=== PATIENT | female | born 2000 | race Caucasian/White ===

== ENCOUNTER 2019-11-04 18:05 | Inpatient (IN) | payer BC, OTHER ==
[2019-11-04] MEDS ORDERED: PENICILLIN G POTASSIUM 5,000,000 UNIT in DEXTROSE 5%-WATER 100 ML IV ONE (18:15)
[2019-11-04] MEDS ORDERED: RINGERS SOLUTION,LACTATED 1,000 ML IV PRN ×2 (18:15→18:18)
[2019-11-04] MEDS ORDERED: RINGERS SOLUTION,LACTATED 300 ML IV ONE (18:18)
[2019-11-04] MEDS ORDERED: DINOPROSTONE 10 MG VAGINAL INSERT.SR PV ONE (18:18)
[2019-11-04] MEDS ORDERED: ACETAMINOPHEN 325 MG TABLET PO PRN (18:18)
[2019-11-04] MEDS ORDERED: ZOLPIDEM TARTRATE 5 MG TABLET PO PRN ×2 (18:18→22:59)
[2019-11-04] MEDS ORDERED: MAG HYDROX/AL HYDROX/SIMETH SUSP 30 ML UDCUP PO PRN (18:18)
[2019-11-04 18:38] LABS: APPEARANCE,URINE SLIGHTLY-CLOUDY; BILIRUBIN,URINE NEGATIVE (NEGATIVE); COLOR,URINE YELLOW; GLUCOSE, URINE NEGATIVE (NEGATIVE); KETONES,URINE NEGATIVE (NEGATIVE); LEUKOCYTE ESTERASE,URINE MODERATE (NEGATIVE); NITRITE,URINE NEGATIVE (NEGATIVE); PROTEIN,URINE NEGATIVE (NEGATIVE); URINE SPECIFIC GRAVITY 1.012; UROBILINOGEN,URINE NEGATIVE mg/dL (<2.0)
[2019-11-04 18:49] LABS: ABSOLUTE EOSINOPHILS # (AUTO) 0.1 10^3/uL (0.0-0.6); ABSOLUTE LYMPHOCYTES (AUTO) 1.7 10^3/uL (0.5-4.7); ABSOLUTE MONOCYTES (AUTO) 0.8 10^3/uL (0.1-1.4); ABSOLUTE NEUT (AUTO) 9.3 10^3/uL (1.7-8.2); BASOPHILS % (AUTO) 0.1 % (0-2); EOSINOPHILS % (AUTO) 0.4 % (0-6); HEMATOCRIT 36.4 % (36.0-47.0); HEMOGLOBIN 11.9 g/dL (12.0-15.5); LYMPHOCYTES % (AUTO) 13.9 % (13-45); MEAN CORPUSCULAR HEMOGLOBIN 25.6 pg (27.0-33.4); MEAN CORPUSCULAR HGB CONC 32.8 g/dL (32.0-36.0); MEAN CORPUSCULAR VOLUME 78 fl (80-97); MONOCYTES % (AUTO) 6.9 % (3-13); PLATELET COUNT 168 10^3/uL (150-450); RED BLOOD COUNT 4.66 10^6/uL (3.72-5.28); SEGMENTED NEUTROPHILS % (AUTO) 78.7 % (42-78); TOTAL CELLS COUNTED % (AUTO) 100 %; WHITE BLOOD COUNT 11.9 10^3/uL (4.0-10.5)
[2019-11-04 18:53] LABS: URINE AMPHETAMINES SCREEN NEGATIVE; URINE BARBITURATES SCREEN NEGATIVE; URINE BENZODIAZEPINES SCREEN NEGATIVE; URINE COCAINE SCREEN NEGATIVE; URINE MARIJUANA (THC) SCREEN NEGATIVE; URINE METHADONE SCREEN NEGATIVE; URINE PHENCYCLIDINE SCREEN NEGATIVE
[2019-11-04] MEDS ORDERED: MISOPROSTOL 0.2 MG TABLET ONE (19:29)
[2019-11-04] MEDS ORDERED: OXYTOCIN 10 UNIT/ML VIAL ONE (19:29)
[2019-11-04] MEDS ORDERED: DINOPROSTONE 10 MG VAGINAL INSERT.SR ONE (19:29)
[2019-11-04] MEDS ORDERED: OXYTOCIN/0.9 % SODIUM CHLORIDE 30 UNIT/500 ML RTUINJ ONE (19:29)
[2019-11-04] MEDS ORDERED: LIDOCAINE 1% INJ-PF (10 MG/ML) 30 ML SDV ONE (19:29)
[2019-11-04] MEDS ORDERED: ZOLPIDEM TARTRATE 5 MG TABLET ONE (22:59)
[2019-11-05] MEDS ORDERED: PROMETHAZINE HCL INJ 25 MG/1 ML VIAL ONE (00:23)
[2019-11-05] MEDS ORDERED: NALBUPHINE HCL INJ 10 MG/1 ML AMPULE ONE (00:24)
[2019-11-05] MEDS ORDERED: PROMETHAZINE HCL INJ 25 MG/1 ML VIAL IV ONE (00:30)
[2019-11-05] MEDS ORDERED: NALBUPHINE HCL INJ 10 MG/1 ML AMPULE INJ ONE (00:30)
[2019-11-05] MEDS ORDERED: EPHEDRINE SULFATE INJ 50 MG/1 ML AMPULE ONE (04:32)
[2019-11-05] MEDS ORDERED: FENTANYL/BUPIVACAINE/NS/PF 300 MCG/150 ML RTUINJ EPI ONE (04:34)
[2019-11-05] MEDS ORDERED: BUPIVACAINE HCL 0.25 % INJ/PF (2.5 MG/1 ML) 30 ML VIAL ONE (04:34)
[2019-11-05] MEDS ORDERED: PENICILLIN G-K 5 MILLION UNIT VIAL ONE (05:20)
--- NOTE | 2019-11-05 06:04 | Admission Physical ---
Datetime Report Generated by CPN: 11/05/2019 06:03 CURRENT ADMISSION Chief Complaint: Uterine Contractions Indication for Induction: Post Dates Admit Impression : Postterm, Intrauterine Admit Plan: Initiate Labor Protocol ALLERGIES Medication Allergies: No Known Allergies (11/04/2019) OBSTETRICAL HISTORY EDC: 10/29/2019 00:00 : 3 Para: 0 Term: 0 : 0 SAB: 0 IAB: 0 Ectopic: 0 Livin Cesareans: 0 VBACs: 0 Multiple Births: 0 Gestational Diabetes: No Rh Sensitization: No Incompetent Cervix: No BUNNY: No Infertility: No ART Treatment: No Uterine Anomaly: No IUGR: No Hx Previous C/S: No Macrosomia: No Hx Loss/Stillborn: No PIH: No Hx : No Placenta Previa/Abruption: No Depression/PP Depression: No PTL/PROM: No Post Hemorrhage: No Current Procedures: Ultrasound; NST Obstetrical History Comments: G1- SAB in 2013 G2- SAB in 2017 G3- current SEE RECORDS Alcohol: No Marijuana : No Cocaine: No Other Illicit Drugs: No Cigarettes: Never Smoker. [id number] MEDICAL HISTORY Diabetes: No Blood Transfusion: No Pulmonary Disease (Asthma, TB): Yes Breast Disease: Yes Hypertension: No Public Relations Surgery: No Heart Disease: No Hosp/Surgery: Yes Autoimmune Disorder: No Anesthetic Complications: No Kidney Disease: No Abnormal Pap Smear: No Neuro/Epilepsy: No Psychiatric Disorders: Yes Other Medical Diseases: No Hepatitis/Liver Disease: No Significant Family History: No Varicosities/Phlebitis: No Trauma/Violence : No Thyroid Dysfunction: No Medical History Comments: childhood ashtma, breast reduction- 2018, wisdom teeth, bipolar disorder INFECTIOUS HISTORY Gonorrhea: No Genital Herpes: No Chlamydia: No Tuberculosis: No Syphilis: No Hepatitis: No HIV/AIDS Exposure: No Rash or Viral Illness: No HPV: No PHYSICAL EXAM General: Normal HEENT: Normal Neurologic: Normal Thyroid: Normal Heart: Normal Lungs: Normal Breast: Deferred Back: Normal Abdomen: Normal Genitourinary Exam: Normal Extremities: Normal DTRs: Normal Pelvic Type: Adequate FETUS A EGA: 41.0 PLANS FOR LABOR AND DELIVERY Labor and Delivery: None Feeding Preference: Breast Benefit of Breast Feed Discussed: Yes Circumcision: Yes INFORMED CONSENT Signature: with User ID: [email or web address]
[2019-11-05] MEDS ORDERED: DIPHENHYDRAMINE HCL 25 MG CAPSULE PO PRN (06:39)
[2019-11-05] MEDS ORDERED: MEASLES,MUMPS&RUBELLA VACC/PF 0.5 ML VIAL SUBCUT PRN (06:39)
[2019-11-05] MEDS ORDERED: PROMETHAZINE HCL 25 MG TABLET PO PRN (06:39)
[2019-11-05] MEDS ORDERED: NA PHOS,M-B/NA PHOS,DI-BA (ADULT) 133 ML ENEMA PR PRN (06:39)
[2019-11-05] MEDS ORDERED: BENZOCAINE/MENTHOL AEROSOL SPRAY 56 ML TOP PRN (06:39)
[2019-11-05] MEDS ORDERED: DIPH/PERTUSS(ACELL)/TETANUS VAC/PF 0.5 ML SYR (>=10YO) IM PRN (06:39)
[2019-11-05] MEDS ORDERED: PSEUDOEPHEDRINE HCL 30 MG TABLET PO PRN (06:39)
[2019-11-05] MEDS ORDERED: ZOLPIDEM TARTRATE 5 MG TABLET PO PRN (06:39)
[2019-11-05] MEDS ORDERED: GLYCERIN/WITCH HAZEL LEAF 1 EACH MED..WIPE TP PRN (06:39)
[2019-11-05] MEDS ORDERED: PROMETHAZINE HCL INJ 25 MG/1 ML VIAL IV PRN (06:39)
[2019-11-05] MEDS ORDERED: DIBUCAINE 1% OINTMENT 28 GM TP PRN (06:39)
[2019-11-05] MEDS ORDERED: PROMETHAZINE HCL 25 MG SUPP.RECT PR PRN (06:39)
[2019-11-05] MEDS ORDERED: OXYTOCIN/0.9 % SODIUM CHLORIDE 30 UNIT/500 ML RTUINJ IV PRN ×2 (06:39→07:00)
[2019-11-05] MEDS ORDERED: MAGNESIUM HYDROXIDE SUSP 30 ML UDCUP PO PRN (06:39)
[2019-11-05] MEDS ORDERED: ACETAMINOPHEN 650 MG SUPP.RECT PR PRN (06:39)
[2019-11-05] MEDS ORDERED: MISOPROSTOL 0.2 MG TABLET PR ONE (07:40)
--- NOTE | 2019-11-05 09:08 | Delivery Summary ---
Del Sum A-C Datetime Report Generated by CPN: 11/05/2019 09:08 DELIVERY PERSONNEL DELIVERY PERSONNEL: [id number] Delivery Doctor:: Pato Davidson MD Labor and Delivery Nurse:: Jarod Coreas RNmagnaflux operator Nurse:: SULLY Leary Nursery Nurse:: Nicci Oliveros RN Nursery Nurse:: Alysha Mack RN Wash Operator/ENGINEERING CLERK: Patti Green, ST MATERNAL INFORMATION Delivery Anesthesia: Epidural Medications After Delivery: Pitocin Bolus-Please Comment; Pitocin 30 Units in 500ml NS/D5W Delivery QBL: 300 Maternal Complications: None LABOR SUMMARY EDC: 10/29/2019 00:00 No. Babies in Womb: 1 Attempted: No Labor Anesthesia: Epidural LABOR INFORMATION Reason for Induction: Post Dates Onset of Labor: 11/05/2019 04:00 Complete Dilatation: 11/05/2019 06:13 Cervical Ripening Agents: Cervidil Oxytocin: N/A Group B Beta Strep: POSITIVE Antibiotics # of Doses: 1 Antibiotics Time of Last Dose: 525 Name of Antibiotic Given: penicillin Steroids Given: None Reason Steroids Not Administered: Not Applicable MEMBRANES Membranes Rupture Method: Spontaneous Rupture of Membranes: 11/05/2019 06:05 Length of Rupture (hr): 0.43 Amniotic Fluid Color: Light Meconium Amniotic Fluid Amount: Moderate Amniotic Fluid Odor: Normal STAGES OF LABOR Stage 1 hr: 2 Stage 1 min: 13 Stage 2 hr: 0 Stage 2 min: 18 Stage 3 hr: 0 Stage 3 min: 2 Total Time in Labor hr: 2 Total Time in Labor min: 33 VAGINAL DELIVERY Episiotomy: None Laceration #1: None Laceration Extension #1: N/A Laceration Repair: Not Applicable Sponge Count Correct: N/A Sharps Count Correct: N/A CSECTION DELIVERY Primary Indication: N/A Secondary Indication: N/A CSection Incidence: N/A Labor: N/A Elective: N/A CSection Incision: N/A BABY A INFORMATION Delivery Date/Time: 11/05/2019 06:31 Method of Delivery: Vaginal Nurse Controlled Delivery: No Born in Route : No : N/A Forceps: N/A Vacuum Extraction: N/A Shoulder Dystocia : No PRESENTATION/POSITION BABY A Presentation: Cephalic Cephalic Presentation: Vertex Vertex Position: Right Occipital Anterior Breech Presentation: N/A PLACENTA INFORMATION BABY A Placenta Delivery Time : 11/05/2019 06:33 Placenta Method of Delivery: Spontaneous Placenta Status: Delivered SCORES BABY A Heart Rate 1 min: >100 bpm Resp Effort 1 min: Slow, Irregular Reflex Irritability 1 min: Cough or Sneeze or Pulls Away Muscle Tone 1 min: Active Motion Color 1 min: Blue/Pale SCORE 1 MIN: 7 Heart Rate 5 min: >100 bpm Resp Effort 5 min: Good Cry Reflex Irritability 5 min: Cough or Sneeze or Pulls Away Muscle Tone 5 min: Active Motion Color 5 min: Body [place], Extremities Blue SCORE 5 MIN: 9 INFORMATION BABY A Gestational Age at Delivery: 41.0 Gestational Status: Late Term- 41- 41.6 Weeks Outcome : Liveborn Condition : Stable Infant Sex: Male IDENTIFICATION BABY A Verification Date/Time: 11/05/2019 06:47 ID Band Number: [id number] Mother's Name Verified: Yes Infant RN Verifying : Cielo Coreas RN/D [place] RN WEIGHT/LENGTH BABY A Birthweight (gm): 3828 Infant Weight (lb): 8 Weight (oz): 7 Length (in): 21.00 Length (cm): 53.34 CORD INFORMATION BABY A No. Cord Vessels: 3 Nuchal Cord : Around Neck x2, Loose Cord Blood Taken: Yes-For Eval (Mom's Blood Type - or O+) Suction: Mouth; Nose ASSESSMENT BABY A Infant Complications: Meconium Physical Findings at Delivery: Within Normal Limits Physical Findings- Other: See initial nursery assessment Infant Respirations: Appears Normal Skin to Skin: Yes Skin to Skin Time (min): 60 Able Bodied Watchman/ALS Called : No Care By: Rogelio Olvieros RN Transferred To: Remains with Mother BABY B INFORMATION : N/A SIGNATURES Signature: with User ID: [email or web address]
[2019-11-05] MEDS: PENICILLIN G POTASSIUM 2,500,000 UNIT in DEXTROSE 5%-WATER 50 ML IV SCH ×4 (09:12→18:57)
[2019-11-05] MEDS: DOCUSATE SODIUM 100 MG CAPSULE PO SCH ×2 (11:06→17:11)
[2019-11-05] MEDS: FERROUS SULFATE 325 MG TABLET PO SCH ×2 (11:06→17:11)
[2019-11-05] MEDS: FAMOTIDINE 20 MG TABLET PO SCH ×2 (11:06→21:37)
[2019-11-05] MEDS: SENNOSIDES/DOCUSATE 8.6-50 MG 1 EACH TABLET PO SCH (11:06)
[2019-11-05] MEDS: PRENATAL VITAMIN W DHA CAPSULE PO SCH (11:06)
[2019-11-05] MEDS: IBUPROFEN 800 MG TABLET PO SCH ×2 (13:57→21:36)
[2019-11-06] MEDS: IBUPROFEN 800 MG TABLET PO SCH ×3 (05:54→21:25)
[2019-11-06 06:43] LABS: HEMATOCRIT 29.9 % (36.0-47.0); HEMOGLOBIN 10.1 g/dL (12.0-15.5); MEAN CORPUSCULAR HEMOGLOBIN 26.6 pg (27.0-33.4); MEAN CORPUSCULAR HGB CONC 33.9 g/dL (32.0-36.0); MEAN CORPUSCULAR VOLUME 79 fl (80-97); PLATELET COUNT 108 10^3/uL (150-450); RED CELL DISTRIBUTION WIDTH 15.1 % (11.5-14.0); WHITE BLOOD COUNT 9.5 10^3/uL (4.0-10.5)
--- NOTE | 2019-11-06 10:05 | PDOC PROGRESS REPORT ---
Subjective-OB Progress Note for:: 11/06/19 Subjective: reports bleeding slowing, pain controlled with current meds. denies needs Physical Exam (OB) Vital Signs: Temp Pulse Resp BP Pulse Ox 97.5 F 66 14 104/50 L 99 11/06/19 07:51 11/06/19 07:51 11/06/19 07:51 11/06/19 07:51 11/06/19 07:51 Intake & Output 11/05/19 11/06/19 11/07/19 06:59 06:59 06:59 Intake Total 1000 Balance 1000 Weight 102.4 kg - Abdomen Description: Soft Hernia Present: No Fundal Description: Firm, Midline Fundal Height: u/u - u/2 - Abdominal Distension: No distension Tenderness: Nontender - Extremities Lower extremities: Katherine's sign - neg Calf: Normal, Nontender Objective-Diagnostic Laboratory: 11/06/19 06:15 11/06/19 06:15 WBC 9.5 RBC 3.80 Hgb 10.1 L Hct 29.9 L MCV 79 L MCH 26.6 L MCHC 33.9 RDW 15.1 H Plt Count 108 L Assessment and Plan(PN) - Assessment and Plan (1) Thrombocytopenia Is this a current diagnosis for this admission?: Yes (2) Vaginal delivery Is this a current diagnosis for this admission?: Yes - Time Spent with Patient Time with patient: Less than 15 minutes - Disposition Anticipated Discharge: Home Within: within 24 hours
[2019-11-06] MEDS: DOCUSATE SODIUM 100 MG CAPSULE PO SCH ×2 (10:24→18:51)
[2019-11-06] MEDS: FAMOTIDINE 20 MG TABLET PO SCH ×2 (10:24→21:25)
[2019-11-06] MEDS: PRENATAL VITAMIN W DHA CAPSULE PO SCH (10:24)
[2019-11-06] MEDS: SENNOSIDES/DOCUSATE 8.6-50 MG 1 EACH TABLET PO SCH (10:24)
[2019-11-06] MEDS: FERROUS SULFATE 325 MG TABLET PO SCH ×2 (10:24→18:51)
[2019-11-06] MEDS: ACETAMINOPHEN WITH CODEINE #3 TABLET PO PRN ×3 (10:32→22:47)
[2019-11-06] MEDS ORDERED: CYCLOBENZAPRINE HCL 10 MG TABLET PO PRN (17:44)
[2019-11-06] MEDS ORDERED: CEPHALEXIN 500 MG CAPSULE ONE (18:39)
[2019-11-06] MEDS ORDERED: CYCLOBENZAPRINE HCL 10 MG TABLET ONE (18:39)
[2019-11-06] MEDS ORDERED: DOCUSATE SODIUM 100 MG CAPSULE ONE ×2 (18:39→18:40)
[2019-11-06] MEDS ORDERED: FERROUS SULFATE 325 MG TABLET PO ONE (18:40)
[2019-11-06] MEDS: CEPHALEXIN 500 MG CAPSULE PO SCH (18:58)
[2019-11-07] MEDS ORDERED: CEPHALEXIN 500 MG CAPSULE ONE ×2 (04:57→17:29)
[2019-11-07] MEDS: IBUPROFEN 800 MG TABLET PO SCH ×2 (05:02→14:21)
[2019-11-07] MEDS: CEPHALEXIN 500 MG CAPSULE PO SCH ×2 (05:03→17:30)
[2019-11-07 06:59] LABS: ABSOLUTE EOSINOPHILS # (AUTO) 0.1 10^3/uL (0.0-0.6); ABSOLUTE MONOCYTES (AUTO) 0.5 10^3/uL (0.1-1.4); ABSOLUTE NEUT (AUTO) 5.5 10^3/uL (1.7-8.2); BASOPHILS % (AUTO) 0.3 % (0-2); HEMATOCRIT 29.4 % (36.0-47.0); HEMOGLOBIN 9.9 g/dL (12.0-15.5); LYMPHOCYTES % (AUTO) 24.9 % (13-45); MEAN CORPUSCULAR HEMOGLOBIN 26.7 pg (27.0-33.4); MEAN CORPUSCULAR HGB CONC 33.8 g/dL (32.0-36.0); MEAN CORPUSCULAR VOLUME 79 fl (80-97); MONOCYTES % (AUTO) 6.2 % (3-13); PLATELET COUNT 116 10^3/uL (150-450); RED BLOOD COUNT 3.72 10^6/uL (3.72-5.28); RED CELL DISTRIBUTION WIDTH 15.3 % (11.5-14.0); SEGMENTED NEUTROPHILS % (AUTO) 67.6 % (42-78); TOTAL CELLS COUNTED % (AUTO) 100 %; WHITE BLOOD COUNT 8.2 10^3/uL (4.0-10.5)
[2019-11-07] MEDS: SENNOSIDES/DOCUSATE 8.6-50 MG 1 EACH TABLET PO SCH (09:05)
[2019-11-07] MEDS: DOCUSATE SODIUM 100 MG CAPSULE PO SCH ×2 (09:05→17:31)
[2019-11-07] MEDS: FAMOTIDINE 20 MG TABLET PO SCH (09:05)
[2019-11-07] MEDS: FERROUS SULFATE 325 MG TABLET PO SCH ×2 (09:05→17:31)
[2019-11-07] MEDS: PRENATAL VITAMIN W DHA CAPSULE PO SCH (09:05)
--- NOTE | 2019-11-07 11:24 | PDOC PROGRESS REPORT ---
Subjective-OB Progress Note for:: 11/07/19 Subjective: Doing well, no c/o, ready to go home, , voiding, Physical Exam (OB) Vital Signs: Temp Pulse Resp BP Pulse Ox 97.8 F 69 16 121/69 100 11/07/19 07:34 11/07/19 07:34 11/07/19 07:34 11/07/19 07:34 11/07/19 07:34 Intake & Output 11/06/19 11/07/19 11/08/19 06:59 06:59 06:59 Intake Total 1000 500 Balance 1000 500 - PIH/Pre-Eclampsia DTR's: 1 + Clonus: Negative Headache: Absent Epigastric Pain: No Visual Changes: No - Lochia Lochia Amount: Scant < 10 ml Lochia Color: Rubra/Red - Abdomen Description: Soft Hernia Present: No Fundal Description: Firm Fundal Height: u/u - u/2 Objective-Diagnostic Laboratory: 11/07/19 06:20 11/07/19 06:20 WBC 8.2 RBC 3.72 Hgb 9.9 L Hct 29.4 L MCV 79 L MCH 26.7 L MCHC 33.8 RDW 15.3 H Plt Count 116 L Seg Neutrophils % 67.6 Assessment and Plan(PN) - Assessment and Plan (1) Positive GBS test Is this a current diagnosis for this admission?: Yes (2) Encounter for induction of labor Is this a current diagnosis for this admission?: Yes (3) Thrombocytopenia Is this a current diagnosis for this admission?: Yes (4) Vaginal delivery Is this a current diagnosis for this admission?: Yes - Time Spent with Patient Time with patient: Less than 15 minutes Medications reviewed and adjusted accordingly: Yes - Disposition Anticipated Discharge: Home Within: within 24 hours
--- NOTE | 2019-11-07 11:30 | PDOC DISCHARGE SUMMARY ---
Impression - Admit/DC Date/PCP Admission Date/Primary Care Provider: 11/04/19 18:05 Discharge Date: 11/07/19 - Discharge Diagnosis (1) Positive GBS test Is this a current diagnosis for this admission?: Yes (2) Encounter for induction of labor Is this a current diagnosis for this admission?: Yes (3) Thrombocytopenia Is this a current diagnosis for this admission?: Yes (4) Vaginal delivery Is this a current diagnosis for this admission?: Yes - Additional Information Resuscitation Status: Full Code Discharge Diet: As Tolerated, Regular Discharge Activity: Activity As Tolerated, Pelvic Rest Ref[facility]: [facility] Prescriptions: Cephalexin Monohydrate [Keflex 500 mg Capsule] 500 mg PO Q12A #14 capsule Home Medications: Vits96/Iron Fum/Folic [ Tablet] 1 each PO DAILY 11/04/19 Cephalexin Monohydrate [Keflex 500 mg Capsule] 500 mg PO Q12A #14 capsule 11/07/19 Ferrous Sulfate [Feosol 325 mg Tablet] 325 mg PO BID tablet 11/07/19 HPI Gestational Age: 41 Reason(s) for Admission: Induction of Labor, Group B Strep Positive Procedures: NST, Ultrasound Intrapartum Procedure(s): Spontaneous Vaginal Delivery Intrapartum Procedure Note: + Meconium Hospital Course Hospital Course: routine pp Results Laboratory Results: WBC 8.2 10^3/uL (4.0-10.5) 11/07/19 06:20 RBC 3.72 10^6/uL (3.72-5.28) 11/07/19 06:20 Hgb 9.9 g/dL (12.0-15.5) L 11/07/19 06:20 Hct 29.4 % (36.0-47.0) L 11/07/19 06:20 MCV 79 fl (80-97) L 11/07/19 06:20 MCH 26.7 pg (27.0-33.4) L 11/07/19 06:20 MCHC 33.8 g/dL (32.0-36.0) 11/07/19 06:20 RDW 15.3 % (11.5-14.0) H 11/07/19 06:20 Plt Count 116 10^3/uL (150-450) L 11/07/19 06:20 Lymph % (Auto) 24.9 % (13-45) 11/07/19 06:20 Reeves % (Auto) 6.2 % (3-13) 11/07/19 06:20 Eos % (Auto) 1.0 % (0-6) 11/07/19 06:20 Baso % (Auto) 0.3 % (0-2) 11/07/19 06:20 Absolute Neuts (auto) 5.5 10^3/uL (1.7-8.2) 11/07/19 06:20 Absolute Lymphs (auto) 2.0 10^3/uL (0.5-4.7) 11/07/19 06:20 Absolute Monos (auto) 0.5 10^3/uL (0.1-1.4) 11/07/19 06:20 Absolute Eos (auto) 0.1 10^3/uL (0.0-0.6) 11/07/19 06:20 Absolute Basos (auto) 0.0 10^3/uL (0.0-0.2) 11/07/19 06:20 Seg Neutrophils % 67.6 % (42-78) 11/07/19 06:20 Urine Color YELLOW 11/04/19 18:20 Urine Appearance SLIGHTLY-CLOUDY 11/04/19 18:20 Urine pH 6.0 (5.0-9.0) 11/04/19 18:20 Ur Specific [place] 1.012 11/04/19 18:20 Urine Protein NEGATIVE mg/dL (NEGATIVE) 11/04/19 18:20 Urine Glucose (UA) NEGATIVE mg/dL (NEGATIVE) 11/04/19 18:20 Urine Ketones NEGATIVE mg/dL (NEGATIVE) 11/04/19 18:20 Urine Blood NEGATIVE (NEGATIVE) 11/04/19 18:20 Urine Nitrite NEGATIVE (NEGATIVE) 11/04/19 18:20 Urine Bilirubin NEGATIVE (NEGATIVE) 11/04/19 18:20 Urine Urobilinogen NEGATIVE mg/dL (<2.0) 11/04/19 18:20 Ur Leukocyte Esterase MODERATE (NEGATIVE) H 11/04/19 18:20 Urine Ascorbic Acid NEGATIVE (NEGATIVE) 11/04/19 18:20 Membranes Rupture NEGATIVE (NEGATIVE) 11/04/19 19:50 Urine Opiates Screen NEGATIVE 11/04/19 18:20 Urine Methadone Screen NEGATIVE 11/04/19 18:20 Ur Barbiturates Screen NEGATIVE 11/04/19 18:20 Ur Phencyclidine Scrn NEGATIVE 11/04/19 18:20 Ur Amphetamines Screen NEGATIVE 11/04/19 18:20 U Benzodiazepines Scrn NEGATIVE 11/04/19 18:20 Urine Cocaine Screen NEGATIVE 11/04/19 18:20 U Marijuana (THC) Screen NEGATIVE 11/04/19 18:20 RPR NONREACTIVE (NONREACTIVE) 11/04/19 18:30 Blood Type O POSITIVE 11/04/19 18:30 Antibody Screen NEGATIVE 11/04/19 18:30 Plan Health Concerns: routine pp, bleeding Plan of Treatment: discharge home, continue Keflex for 7 days for UTI Goals: no complications Time Spent: Less than 30 Minutes
[2019-11-07 11:32] VITALS: BP 127/71
== END 2019-11-07 18:32 | disposition home or self-care (01) | DRG 832 ==
LOC: LR 18:05 → 2S 11-05 09:04
PROVIDERS: ADMIT Obstetrics & Gynecology Gynecology; ATTEND Obstetrics & Gynecology Gynecology
PROC: 10E0XZZ Delivery of Products of Conception, External Approach (ICD-10-PCS; principal; 2019-11-05)
DX: O48.0 Post-term pregnancy (principal); O99.12 Other diseases of the blood and blood-forming organs and certain disorders involving the immune mechanism complicating childbirth; O99.52 Diseases of the respiratory system complicating childbirth; J45.909 Unspecified asthma, uncomplicated; O99.344 Other mental disorders complicating childbirth; F31.9 Bipolar disorder, unspecified; O99.824 Streptococcus B carrier state complicating childbirth; O77.0 Labor and delivery complicated by meconium in amniotic fluid; Z3A.41 41 weeks gestation of pregnancy; O69.81X0 Labor and delivery complicated by cord around neck, without compression, not applicable or unspecified; D69.6 Thrombocytopenia, unspecified
CPT/HCPCS: 1967; 36415; 80307; 81005; 84112; 85025; 85027; 86592; 86850; 86900; 86901; 94760; J2300; J2540; J2550; J2590; J3010; J3490; J7060